=== PATIENT | female | born 1950 | race Caucasian/White ===

== ENCOUNTER 2016-12-08 20:30 | Observation (INO) | payer OTHER ==
[~2016-12-08] VITALS: Ht 139.7 cm; Wt 102.5 kg
[~2016-12-08 20:30] MED LIST: IBUP-974 PO
[2016-12-08 20:39] VITALS: BP 134/70
--- NOTE | 2016-12-08 21:03 | NUR ---
PT TAKEN TO BED 3
--- NOTE | 2016-12-08 21:30 | NUR ---
Dr. Zayas evaluating patient at bedside.
--- NOTE | 2016-12-08 21:45 | NUR ---
BIB BY DAUGHTER WITH HEADACHE 02/25 VERBALIZED BY PATIENT FOR 1 WEEK. STARTED DIZZINESS, NAUSEA AND VOMITING TODAY. NO DIARRHEA. PATIENT SPEAKS SYRIAN, DAUGHTER DINKEY SKINNER ON THE BEDSIDE. EXAMINED BY AMANDA MENDOZA STUDENT AT BEDSIDE.
[2016-12-08] MEDS ORDERED: ACETAMINOPHEN EXTRA STRENGTH 500 MG TAB PO ONE (21:50)
[2016-12-08 22:10] LABS: BASOPHILS # (AUTO) 0.1 K/uL (0.00-0.22); EOSINOPHILS # (AUTO) 0.2 K/uL (0-0.4)
[2016-12-08 22:14] LABS: BASOPHILS % (AUTO) 1.9 % (0.0-2.0); EOSINOPHILS % (AUTO) 3.3 % (0.0-4.0); HEMATOCRIT 43.8 % (36-48); HEMOGLOBIN 14.5 g/dL (12.0-16.0); LYMPHOCYTES # (AUTO) 1.2 K/uL (2.5-16.5); LYMPHOCYTES % (AUTO) 17.6 % (20.5-51.1); MEAN CORPUSCULAR HEMOGLOBIN 27 pg (27-31); MEAN CORPUSCULAR HGB CONC 33 g/dL (33-37); MEAN CORPUSCULAR VOLUME 81 fL (80-94); MONOCYTES # (AUTO) 0.5 K/uL (0.8-1.0); MONOCYTES % (AUTO) 7.6 % (1.7-9.3); NEUTROPHILS # (AUTO) 5.1 K/uL (1.8-7.7); NEUTROPHILS % (AUTO) 69.6 % (42.2-75.2); PLATELET COUNT (AUTO) 259 K/uL (140-450); RED BLOOD CELL COUNT(AUTO) 5.38 MIL/uL (4.20-5.40); RED CELL DISTRIBUTION WIDTH 13.5 % (11.6-13.7); WHITE BLOOD COUNT (AUTO) 7.1 K/uL (4.8-10.8)
[2016-12-08 22:23] LABS: ANION GAP 11.9 (8-16); CALCIUM 9.3 mg/dL (8.5-10.1); CARBON DIOXIDE 30.3 mmol/L (21-32); CREATININE 0.9 mg/dL (0.6-1.3); POTASSIUM 3.2 mmol/L (3.5-5.1)
[2016-12-08 22:28] LABS: ALBUMIN 3.7 g/dL (3.4-5.0); TOTAL BILIRUBIN 0.7 mg/dL (0.0-1.0); TOTAL PROTEIN, SERUM 7.9 g/dL (6.4-8.2)
[2016-12-08 22:40] LABS: CREATINE KINASE MB 3.5 ng/mL (0-3.6)
--- NOTE | 2016-12-08 23:05 | NUR ---
DR. POTTER AT THE BEDSIDE EXPLAINING RESULT TO THE PATIENT AND THE DAUGHTER.
[2016-12-08] MEDS ORDERED: ASPIRIN 325 MG TAB PO ONE (23:10)
[2016-12-08] MEDS ORDERED: POTASSIUM CHLORIDE 10 MEQ TABER PO ONE (23:15)
[2016-12-09] MEDS ORDERED: ONDANSETRON 4 MG/2 ML VIAL IVP PRN (00:45)
[2016-12-09 01:30] VITALS: BP 147/79
--- NOTE | 2016-12-09 01:34 | NUR ---
Patient will be admitted to care of DR. COLEMAN. Admited to TELEMETRY. Will go to room 107A. Belongings list completed. Report to YOHANA SMITH.
--- NOTE | 2016-12-09 01:40 | NUR ---
ADMITTED THIS 66 YEAR OLD FEMALE FROM ER PER SOY WITH CC OF HEADACHE, AMBULATED TO BED WITH MINIMAL ASSIST, ASSESSMENT DONE, VITAL SIGNS TAKEN, BP SLIGHTLY ELEVATED, ASYMPTOMATIC, DENIES ANY PAIN, PT AAOX4, PERSIAN SPEAKING ONLY, HX OBTAINED WITH ASSIST FROM DAUGHTER JESSI AT BEDSIDE, ORIENTED TO ROOM AND CALL LIGHT, OFFERED FOOD BUT PT NOT HUNGRY AT THIS TIME, SAFETY MEASURES IN PLACE, CALL LIGHT WITHIN REACH.
--- NOTE | 2016-12-09 02:10 | NUR ---
PT AND DAUGHTER ASKING WHEN CAN SHE GO HOME, PLAN OF CARE DISCUSSED, MADE AWARE THAT SECOND CARDIAC PANEL AND EKG TO BE DONE AT 0600, VERBALIZED UNDERSTANDING, ALL NEEDS ATTENDED.
[2016-12-09] MEDS ORDERED: PNEUMOCOCCAL VACCINE 23 MCG/0.5 ML VIAL IMVAC PRN (02:20)
[2016-12-09 02:33] LABS: APPEARANCE,URINE CLEAR (CLEAR); BILIRUBIN,URINE NEGATIVE (NEGATIVE); BLOOD, URINE NEGATIVE (NEGATIVE); COLOR,URINE YELLOW (YELLOW); LEUKOCYTE ESTERASE ,URINE NEGATIVE (NEGATIVE); NITRITE, URINE NEGATIVE (NEGATIVE); PH,URINE 5.5 (5.0-9.0); PROTEIN,URINE NEGATIVE (NEGATIVE); UGLUCOSE NEGATIVE (NEGATIVE); UROBILINOGEN,URINE 0.2 EU/dL (0.2 - 1)
[2016-12-09 02:46] LABS: BACTERIA,URINE 1+ /HPF (None Seen); RBC,URINE 0-5 (RARE) /HPF (0-5); WBC,URINE 0-5 (RARE) /HPF (0-5)
[2016-12-09 04:00] VITALS: BP 128/63
--- NOTE | 2016-12-09 04:00 | NUR ---
PT SLEEPING, EASILY AROUSABLE, VITAL SIGNS STABLE, DENIES ANY PAIN, N/V OR DIZZINESS, CONTINUE TO MONITOR CLOSELY.
--- NOTE | 2016-12-09 06:00 | NUR ---
PT SLEEPING, EASILY AROUSABLE, NO SIGNS OF DISTRESS, MONITORED CLOSELY.
[2016-12-09 07:01] LABS: CREATINE KINASE MB 3.1 ng/mL (0-3.6)
--- NOTE | 2016-12-09 07:30 | NUR ---
PT AWAKE SITTING ON BEDSIDE CHAIR, NO DISTRESS NOTED, DAUGHTER AT BEDSIDE, ENDORSE TO RN STEVEN FOR CONTINUITY OF CARE.
--- NOTE | 2016-12-09 07:35 | NUR ---
RECEIVED REPORT FROM SARAH MULLER. PT IS SITTING ON CHAIR AT BEDSIDE, ACCOMPANIED BY DAUGHTER, A/OX4, AMBULATORY, SKIN IS INTACT, IV RT FA, PATENT, INTACT, FLUSHING WELL, INITIAL ASSESSMENT DONE, NO S/S OF RESPIRATORY DISTRESS OR DISCOMFORT NOTED, DISCUSSED PLAN OF CARE WITH PT, PT VERBALIZED UNDERSTANDING, CALL LIGHT WITHIN REACH, WILL CONTINUE TO MONITOR.
[2016-12-09 08:00] VITALS: BP 119/72
--- NOTE | 2016-12-09 08:30 | NUR ---
DR. JOSEPH AT PATIENT'S BEDSIDE.
[2016-12-09] MEDS ORDERED: ENOXAPARIN 40 MG/0.4 ML SYR SUBQ SCH (09:00)
[2016-12-09] MEDS ORDERED: ENOXAPARIN 30 MG/0.3 ML SYR SUBQ SCH (09:00)
--- NOTE | 2016-12-09 09:00 | NUR ---
INFORMED PT DR. JOSEPH HAD PUT IN ORDER TO DISCHARGE HER HOME. DAUGHTER IS AT BEDSIDE. PT VERBALIZED UNDERSTANDING.
--- NOTE | 2016-12-09 10:50 | NUR ---
PT DISCHARGE INSTRUCTIONS GIVEN, REMOVED ID WRIST BAND, REMOVED IV, CATHETER TIP INTACT, PT STABLE UPON DISCHARGE, ACCOMPANIED BY DAUGHTER.
[2016-12-10] MEDS ORDERED: ASPIRIN 81 MG TAB.CHEW PO SCH (09:00)
== END 2016-12-09 10:50 | disposition home or self-care (01) ==
LOC: MED 20:30 → MTU 12-09 00:46
PROVIDERS: ADMIT Hospitalist; ATTEND Hospitalist
DX: I16.0 Hypertensive urgency (principal); T73.0XXA Starvation, initial encounter; E87.6 Hypokalemia; R74.8 Abnormal levels of other serum enzymes; I10 Essential (primary) hypertension; E66.01 Morbid (severe) obesity due to excess calories; G89.29 Other chronic pain; M25.512 Pain in left shoulder; R11.2 Nausea with vomiting, unspecified; R42 Dizziness and giddiness; R63.4 Abnormal weight loss; Z72.0 Tobacco use; X58.XXXA Exposure to other specified factors, initial encounter
CPT/HCPCS: 36415; 71010; 80053; 81001; 82550; 82553; 83690; 84484; 85025; 87081; 87086; 90471; 90732; 93005; 96372; 99285; G0378; J1650; Q0092

== ENCOUNTER 2020-03-05 12:03 | Emergency (ER) | payer OTHER ==
[~2020-03-05] VITALS: Ht 149.9 cm; Wt 68.5 kg
[2020-03-05 12:03] VITALS: BP 138/54
--- NOTE | 2020-03-05 12:03 | NUR ---
Patient BIBA ALS, transferred to bed 7. RN evaluating patient at bedside.
--- NOTE | 2020-03-05 12:13 | NUR ---
69 Y/O F BIBA FROM HOME C/C DIZZINESS, NAUSEA, VOMITTING X THIS MORNING. PER EMS STARTED AN IV LINE, GAVE ZOFRAN FOR THE NAUSEA. PT PRESENTS IN NO DISTRESS, NAUSEA, VOMITING. CURRENTLY WITH DIZZINESS. A/OX4. DENIES CHEST PAIN, DYSPNEA. ALLERGIES CODEINE. HX HTN. RX LISINOPRIL. NO DIARREAH. SIDE RAIL X2.
--- NOTE | 2020-03-05 12:14 | NUR ---
Dr. Cortes is evaluating the patient at bedside.
[2020-03-05] MEDS ORDERED: MECLIZINE 25 MG TAB PO ONE (12:15)
[2020-03-05] MEDS ORDERED: ONDANSETRON 4 MG/2 ML VIAL IVP ONE (12:15)
[2020-03-05] MEDS ORDERED: DICL-342 PO (12:45)
[2020-03-05] MEDS ORDERED: LISI10TA11 PO (12:45)
[2020-03-05] MEDS ORDERED: TRAM50TA1 PO (12:45)
[2020-03-05] MEDS ORDERED: ASPI-1205 PO (12:45)
[2020-03-05 12:47] LABS: BASOPHILS % (AUTO) 0.3 % (0.0-2.0); EOSINOPHILS # (AUTO) 0.1 K/uL (0-0.4); EOSINOPHILS % (AUTO) 1.3 % (0.0-4.0); HEMATOCRIT 38.6 % (36-48); HEMOGLOBIN 12.7 g/dL (12.0-16.0); LYMPHOCYTES # (AUTO) 0.8 K/uL (2.5-16.5); LYMPHOCYTES % (AUTO) 13.1 % (20.5-51.1); MEAN CORPUSCULAR HEMOGLOBIN 29 pg (27-31); MEAN CORPUSCULAR HGB CONC 33 g/dL (33-37); MEAN CORPUSCULAR VOLUME 87.1 fL (80-94); MONOCYTES # (AUTO) 0.3 K/uL (0.8-1.0); MONOCYTES % (AUTO) 4.3 % (1.7-9.3); PLATELET COUNT (AUTO) 225 K/uL (140-450); RED BLOOD CELL COUNT(AUTO) 4.43 MIL/uL (4.20-5.40); RED CELL DISTRIBUTION WIDTH 13.4 % (11.6-13.7); WHITE BLOOD COUNT (AUTO) 6.1 K/uL (4.8-10.8)
[2020-03-05 13:08] LABS: CARBON DIOXIDE 20.4 mmol/L (21-32); CREATININE 0.8 mg/dL (0.6-1.3); POTASSIUM 4.4 mmol/L (3.5-5.1); TOTAL BILIRUBIN 0.6 mg/dL (0.0-1.0)
--- NOTE | 2020-03-05 13:28 | NUR ---
IV removed, catheter intact and site benign. Applied folded 4x4 gauze and tape to stop bleeding.
[2020-03-05 13:44] VITALS: BP 132/58
--- NOTE | 2020-03-05 13:45 | NUR ---
Patient discharged with v/s stable. Written and verbal after care instructions given and explained. Patient alert, oriented and verbalized understanding of instructions. Wheel Chair Assisted with to car. All questions addressed prior to discharge. ID band removed. Patient advised to follow up with PMD. Rx of MECLIZINE,ZOFRAN given. Patient educated on indication of medication including possible reaction and side effects. Opportunity to ask questions provided and answered.
== END 2020-03-05 13:45 | disposition home or self-care (01) ==
LOC: MED 12:03
DX: R42 Dizziness and giddiness (principal); R11.10 Vomiting, unspecified; I10 Essential (primary) hypertension; Z79.82 Long term (current) use of aspirin; Z79.899 Other long term (current) drug therapy; Z88.5 Allergy status to narcotic agent
CPT/HCPCS: 36415; 80053; 85025; 93005; 96374; 99284; J2405; J8597

== ENCOUNTER 2022-03-12 17:37 | Emergency (ER) | payer OTHER ==
[~2022-03-12] VITALS: Ht 142.2 cm; Wt 71.2 kg
[~2022-03-12 17:37] MED LIST changes: +ASPI-1205 PO; +DICL-342 PO; -IBUP-974 PO; +LISI-486 PO; +TRAM50TA1 PO
[2022-03-12 17:43] VITALS: BP 128/53
--- NOTE | 2022-03-12 18:55 | NUR ---
PT AMBULATED TO ER BED 5 WITH WALKER
[2022-03-12 20:09] LABS: BASOPHILS # (AUTO) 0.1 K/uL (0.00-0.22); BASOPHILS % (AUTO) 1.1 % (0.0-2.0); EOSINOPHILS # (AUTO) 0.3 K/uL (0-0.4); EOSINOPHILS % (AUTO) 5.4 % (0.0-4.0); HEMATOCRIT 40.1 % (36-48); LYMPHOCYTES # (AUTO) 1.7 K/uL (2.5-16.5); MEAN CORPUSCULAR HEMOGLOBIN 27 pg (27-31); MEAN CORPUSCULAR HGB CONC 32 g/dL (33-37); MEAN CORPUSCULAR VOLUME 83.7 fL (80-94); MONOCYTES # (AUTO) 0.6 K/uL (0.8-1.0); MONOCYTES % (AUTO) 10.3 % (1.7-9.3); NEUTROPHILS # (AUTO) 3.2 K/uL (1.8-7.7); NEUTROPHILS % (AUTO) 54.2 % (42.2-75.2); PLATELET COUNT (AUTO) 262 K/uL (140-450); RED BLOOD CELL COUNT(AUTO) 4.79 MIL/uL (4.20-5.40); RED CELL DISTRIBUTION WIDTH 14.7 % (11.6-13.7)
[2022-03-12 20:23] LABS: ALBUMIN 3.5 g/dL (3.4-5.0); ANION GAP 12.2 (8-16); ASPARTATE AMINOTRANSFERASE 17 U/L (15-37); CARBON DIOXIDE 26.3 mmol/L (21-32); CHLORIDE 105 mmol/L (98-107); CREATININE 0.8 mg/dL (0.6-1.3); GLUCOSE 91 mg/dL (74-106); LIPASE 153 U/L (73-393); POTASSIUM 4.5 mmol/L (3.5-5.1); SODIUM SERUM 139 mmol/L (136-145); TOTAL BILIRUBIN 0.3 mg/dL (0.0-1.0); UREA NITROGEN, BLOOD 24 mg/dL (7-18)
--- NOTE | 2022-03-12 20:31 | NUR ---
PT MOVED FROM BED 5 TO CHAIR C VIA WALKER
[2022-03-12] MEDS ORDERED: OMEP20EC11 PO (22:12)
== END 2022-03-12 22:32 | disposition home or self-care (01) ==
LOC: MED 17:37
DX: R10.13 Epigastric pain (principal)
CPT/HCPCS: 36415; 80053; 83690; 85025; 99284

== ENCOUNTER 2024-01-06 07:21 | Emergency (ER) | payer OTHER ==
[~2024-01-06] VITALS: Ht 157.5 cm; Wt 81.6 kg
[~2024-01-06 07:21] MED LIST changes: -LISI-486 PO; +LISI-951 PO; +OMEP20EC11 PO; +TRAM-748 PO; -TRAM50TA1 PO
[2024-01-06 07:31] VITALS: BP 161/80; PULSE 70; RESP 18; TEMP 98.3; O2SAT 99
[2024-01-06] MEDS: ONDANSETRON 4 MG ODT PO ONE (07:53)
[2024-01-06] MEDS: MECLIZINE 25 MG TAB PO ONE (07:53)
[2024-01-06 08:17] LABS: BASOPHILS % (AUTO) 0.8 % (0.0-2.0); EOSINOPHILS # (AUTO) 0.1 K/uL (0-0.4); HEMATOCRIT 41.7 % (36-48); LYMPHOCYTES % (AUTO) 22.1 % (20.5-51.1); MEAN CORPUSCULAR HEMOGLOBIN 28 pg (27-31); MEAN CORPUSCULAR HGB CONC 34 g/dL (33-37); MEAN CORPUSCULAR VOLUME 83.9 fL (80-94); MONOCYTES # (AUTO) 0.4 K/uL (0.8-1.0); MONOCYTES % (AUTO) 8.3 % (1.7-9.3); NEUTROPHILS # (AUTO) 3.1 K/uL (1.8-7.7); NEUTROPHILS % (AUTO) 65.8 % (42.2-75.2); PLATELET COUNT (AUTO) 247 K/uL (140-450); RED BLOOD CELL COUNT(AUTO) 4.98 MIL/uL (4.20-5.40); RED CELL DISTRIBUTION WIDTH 14.4 % (11.6-13.7); WHITE BLOOD COUNT (AUTO) 4.7 K/uL (4.8-10.8)
[2024-01-06 08:28] LABS: ANION GAP 12.2 (8-16); CALCIUM 8.8 mg/dL (8.5-10.1); CARBON DIOXIDE 28.2 mmol/L (21-32); CHLORIDE 102 mmol/L (98-107); CREATININE 0.9 mg/dL (0.6-1.3); GLUCOSE 103 mg/dL (74-106); POTASSIUM 4.4 mmol/L (3.5-5.1); SODIUM SERUM 138 mmol/L (136-145); UREA NITROGEN, BLOOD 18 mg/dL (7-18)
[2024-01-06] MEDS ORDERED: ONDA-188 PO (09:05)
[2024-01-06] MEDS ORDERED: MECL-231 PO (09:05)
[2024-01-06 09:33] VITALS: BP 144/70; PULSE 74; RESP 17; O2SAT 98
== END 2024-01-06 09:34 | disposition home or self-care (01) ==
LOC: MED 07:21
DX: R11.0 Nausea (principal); R42 Dizziness and giddiness; H93.8X1 Other specified disorders of right ear; I10 Essential (primary) hypertension; E78.5 Hyperlipidemia, unspecified; Z79.1 Long term (current) use of non-steroidal anti-inflammatories (NSAID); Z79.82 Long term (current) use of aspirin; Z79.899 Other long term (current) drug therapy; Z88.5 Allergy status to narcotic agent; Z98.890 Other specified postprocedural states
CPT/HCPCS: 36415; 70450; 80048; 84484; 85025; 93005; 99284; J8597; Q0162

== ENCOUNTER 2024-01-09 09:43 | Emergency (ER) | payer OTHER ==
[~2024-01-09] VITALS: Ht 152.4 cm; Wt 81.6 kg
[~2024-01-09 09:43] MED LIST changes: +MECL-231 PO; +ONDA-188 PO
[2024-01-09 10:06] VITALS: BP 145/70; PULSE 70; RESP 18; TEMP 97.7; O2SAT 97
[2024-01-09 11:02] LABS: BASOPHILS % (AUTO) 0.8 % (0.0-2.0); EOSINOPHILS # (AUTO) 0.2 K/uL (0-0.4); EOSINOPHILS % (AUTO) 2.7 % (0.0-4.0); HEMATOCRIT 43.6 % (36-48); HEMOGLOBIN 14.6 g/dL (12.0-16.0); LYMPHOCYTES # (AUTO) 1.6 K/uL (2.5-16.5); LYMPHOCYTES % (AUTO) 27.1 % (20.5-51.1); MEAN CORPUSCULAR HEMOGLOBIN 28 pg (27-31); MEAN CORPUSCULAR HGB CONC 34 g/dL (33-37); MEAN CORPUSCULAR VOLUME 84.1 fL (80-94); MONOCYTES # (AUTO) 0.5 K/uL (0.8-1.0); MONOCYTES % (AUTO) 9.5 % (1.7-9.3); NEUTROPHILS # (AUTO) 3.5 K/uL (1.8-7.7); NEUTROPHILS % (AUTO) 59.9 % (42.2-75.2); PLATELET COUNT (AUTO) 252 K/uL (140-450); RED BLOOD CELL COUNT(AUTO) 5.18 MIL/uL (4.20-5.40); RED CELL DISTRIBUTION WIDTH 14.2 % (11.6-13.7); WHITE BLOOD COUNT (AUTO) 5.8 K/uL (4.8-10.8)
[2024-01-09 11:18] LABS: ANION GAP 13.3 (8-16); CALCIUM 8.9 mg/dL (8.5-10.1); CARBON DIOXIDE 26.3 mmol/L (21-32); CHLORIDE 99 mmol/L (98-107); GLUCOSE 92 mg/dL (74-106); POTASSIUM 4.6 mmol/L (3.5-5.1); SODIUM SERUM 134 mmol/L (136-145); UREA NITROGEN, BLOOD 18 mg/dL (7-18)
[2024-01-09 11:25] LABS: ALANINE AMINOTRANSFERASE 13 U/L (12-78); ALBUMIN 3.6 g/dL (3.4-5.0); ALKALINE PHOSPHATASE 106 U/L (50-136); ASPARTATE AMINOTRANSFERASE 27 U/L (15-37); BILIRUBIN,DIRECT 0.2 mg/dL (0.0-0.3); TOTAL BILIRUBIN 0.9 mg/dL (0.0-1.0); TOTAL PROTEIN, SERUM 7.8 g/dL (6.4-8.2)
[2024-01-09] MEDS: NACL 0.9% 1,000 ML IV ONE (12:03)
[2024-01-09 12:35] VITALS: BP 124/64; PULSE 67; RESP 16; O2SAT 99
== END 2024-01-09 12:35 | disposition home or self-care (01) ==
LOC: MED 09:43
DX: R42 Dizziness and giddiness (principal); I10 Essential (primary) hypertension; Z79.82 Long term (current) use of aspirin; Z79.1 Long term (current) use of non-steroidal anti-inflammatories (NSAID); Z79.899 Other long term (current) drug therapy
CPT/HCPCS: 36415; 71045; 80048; 80076; 84484; 85025; 93005; 96360; 99285; J7030